=== PATIENT | female | born 1980 | race Two or more races ===

== ENCOUNTER → 2016-04-11 | Outpatient (CLI) | payer OTHER ==
--- NOTE | 2016-04-11 13:09 | REP ---
The cervical spine eight views: Vertebral body heights, interspacing alignment are normal. The facets are normally aligned. Prevertebral soft tissues are normal. There is no listhesis on flexion or extension. The odontoid view is unremarkable. There is no bony foraminal encroachment. Impression: Essentially negative plain film study of the cervical spine. Signed by Arjun Garduno MD 04/11/2016 01:00 P
--- NOTE | 2016-04-11 13:10 | REP ---
Lumbar spine five views: There are no comparisons. Vertebral body heights, interspacing alignment are normal. There is no spondylolysis or spondylolisthesis. The pedicles, facets and sacroiliac articulations are unremarkable. There is a calcification in the abdominal right upper quadrant, possibly a gallbladder calculus. Impression: Essentially negative lumbar spine. Right upper quadrant abdominal calcification, possibly a gallbladder calculus. Signed by Arjun Garduno MD 04/11/2016 01:02 P
--- NOTE | 2016-04-11 13:12 | REP ---
Left hip two views: Mineralization and joint space are normal. There is no femoral head deformity. There are no calcifications or foreign bodies. No fracture or dislocation. There is a calcification in the pelvis on the left, nonspecific, ureteral calculus versus phlebolith. Correlate with symptomatology. Impression: Negative left hip. Pelvic calcification. Signed by Arjun Garduno MD 04/11/2016 01:03 P
== END ==
LOC: M RAD 11:48
PROVIDERS: ATTEND Nurse Practitioner Family
DX: M25.552 Pain in left hip (principal); M54.12 Radiculopathy, cervical region; M54.42 Lumbago with sciatica, left side

== ENCOUNTER → 2016-04-11 | Outpatient (REF) | payer OTHER, MEDICAID ==
[2016-04-11 11:40] LABS: BASO % 0.5 % (0.0-1.0); EOS # 0.1 K/mm3 (0.0-0.50); EOS % 2.1 % (0.0-3.0); LARGE UNSTAINED CELL # 0.1 K/mm3 (0.0-0.4); LARGE UNSTAINED CELL % 2.1 % (0.0-4.0); LYMPH # 1.5 K/mm3 (1.5-4.5); LYMPH % 22.6 % (24.0-44.0); MEAN CORPUSCULAR HEMOGLOBIN 32.1 pg (27.0-33.0); MEAN CORPUSCULAR HGB CONC 33.6 g/dl (32.0-36.5); MEAN CORPUSCULAR VOLUME 95.6 fl (80.0-96.0); MONO # 0.5 K/mm3 (0.0-0.8); MONO % 7.9 % (0.0-5.0); NEUTROPHILS # 3.8 K/mm3 (1.8-7.7); NEUTROPHILS % 64.8 % (36.0-66.0); PLATELET COUNT, AUTOMATED 277 k/mm3 (150-450); WHITE BLOOD COUNT 5.9 K/mm3 (4.0-10.0)
[2016-04-11 12:26] LABS: ALBUMIN 4.1 GM/DL (3.2-5.2); ALBUMIN/GLOBULIN RATIO 1.32 (1.00-1.93); ALKALINE PHOSPHATASE 55 U/L (45-117); ALT/SGPT 16 U/L (12-78); ANION GAP 7 MEQ/L (8-16); AST/SGOT 12 U/L (15-37); BILIRUBIN,TOTAL 0.3 MG/DL (0.2-1.0); BLOOD UREA NITROGEN 12 MG/DL (7-18); CALCIUM LEVEL 8.9 MG/DL (8.5-10.1); CARBON DIOXIDE LEVEL 29 MEQ/L (21-32); CHLORIDE LEVEL 106 MEQ/L (98-107); CHOLESTEROL LEVEL 136 MG/DL (<200); CREATININE FOR GFR 0.83 MG/DL (0.55-1.02); GLOMERULAR FILTRATION RATE > 60.0 (>60); GLUCOSE, FASTING 81 MG/DL (70-105); POTASSIUM SERUM 4.3 MEQ/L (3.5-5.1); SODIUM LEVEL 142 MEQ/L (136-145); TOTAL PROTEIN 7.2 GM/DL (6.4-8.2); TRIGLYCERIDES LEVEL 44 MG/DL (<150)
== END ==
LOC: M SFHCPLAZ 09:55
PROVIDERS: ATTEND Nurse Practitioner Family
DX: Z00.00 Encounter for general adult medical examination without abnormal findings (principal); F32.9 Major depressive disorder, single episode, unspecified; Z13.220 Encounter for screening for lipoid disorders

== ENCOUNTER → 2016-12-15 | Outpatient (CLI) | payer OTHER, SELFPAY ==
--- NOTE | 2016-12-15 09:08 | REP ---
LEFT FOOT: Four views. HISTORY: Injury. FINDINGS: Four views of the left foot show overall normal mineralization. No fracture or subluxation is seen. IMPRESSION: Negative left foot radiographs. Signed by Gigi Wright MD 12/15/2016 01:16 P
--- NOTE | 2016-12-15 09:09 | REP ---
LEFT ANKLE SERIES: Four views. HISTORY: Injury. FINDINGS: Four views of the left ankle demonstrate an intact ankle mortise. No fracture or subluxation is seen. Minimal anterior swelling. IMPRESSION: No fracture noted. Signed by Gigi Wright MD 12/15/2016 01:16 P
--- NOTE | 2016-12-15 09:09 | REP ---
LEFT KNEE SERIES: Five views. HISTORY: Injury. FINDINGS: Five views of the left knee show normal bones, joints, and soft tissues. No fracture or subluxation is seen. A normal fabella is noted. IMPRESSION: Negative left knee radiographs. Signed by Gigi Wright MD 12/15/2016 01:16 P
== END ==
LOC: M LRY 08:13
PROVIDERS: ATTEND Nurse Practitioner Family
DX: S99.922A Unspecified injury of left foot, initial encounter (principal); S89.92XA Unspecified injury of left lower leg, initial encounter; S99.912A Unspecified injury of left ankle, initial encounter; X58.XXXA Exposure to other specified factors, initial encounter; Y92.89 Other specified places as the place of occurrence of the external cause; Y99.9 Unspecified external cause status; Y93.9 Activity, unspecified

== ENCOUNTER 2017-12-26 18:09 | Emergency (ER) | payer MEDICAID, SELFPAY, OTHER ==
[2017-12-26 18:37] LABS: BASO # 0.1 10^3/uL (0.0-0.2); BASO % 0.5 % (0.0-1.0); EOS # 0.2 10^3/uL (0.0-0.50); EOS % 1.9 % (0.0-3.0); HEMATOCRIT 40.9 % (36.0-47.0); HEMOGLOBIN 13.8 g/dl (12.0-15.5); IMMATURE GRANULOCYTE % 0.2 % (0-3.0); LYMPH # 2.1 10^3/uL (1.5-4.5); LYMPH % 22.2 % (24.0-44.0); MEAN CORPUSCULAR HEMOGLOBIN 31.9 pg (27.0-33.0); MEAN CORPUSCULAR HGB CONC 33.7 g/dl (32.0-36.5); MEAN CORPUSCULAR VOLUME 94.5 fl (80.0-96.0); MONO # 0.5 10^3/uL (0.0-0.8); MONO % 4.9 % (0.0-5.0); NEUTROPHILS # 6.6 10^3/uL (1.8-7.7); NEUTROPHILS % 70.3 % (36.0-66.0); PLATELET COUNT, AUTOMATED 248 10^3/uL (150-450); RED BLOOD COUNT 4.33 10^6/uL (4.00-5.40); RED CELL DISTRIBUTION WIDTH 12.4 % (11.5-14.5); WHITE BLOOD COUNT 9.4 10^3/uL (4.0-10.0)
[2017-12-26 18:58] LABS: CONTROL LINE HCG INT CTR LINE PRESENT; HCG, SERUM QUALITATIVE NEGATIVE (NEGATIVE)
[2017-12-26 19:05] LABS: ALBUMIN 3.9 GM/DL (3.2-5.2); ALBUMIN/GLOBULIN RATIO 1.22 (1.00-1.93); ALKALINE PHOSPHATASE 50 U/L (45-117); ALT/SGPT 22 U/L (12-78); ANION GAP 8 MEQ/L (8-16); AST/SGOT 15 U/L (7-37); BILIRUBIN,DIRECT < 0.1 MG/DL (0.0-0.2); BILIRUBIN,TOTAL 0.3 MG/DL (0.2-1.0); BLOOD UREA NITROGEN 9 MG/DL (7-18); CALCIUM LEVEL 8.4 MG/DL (8.5-10.1); CARBON DIOXIDE LEVEL 27 MEQ/L (21-32); CHLORIDE LEVEL 106 MEQ/L (98-107); CREATININE FOR GFR 0.85 MG/DL (0.55-1.30); GLOMERULAR FILTRATION RATE > 60.0 (>60); GLUCOSE, FASTING 104 MG/DL (70-100); LIPASE 98 U/L (73-393); POTASSIUM SERUM 4.1 MEQ/L (3.5-5.1); SODIUM LEVEL 141 MEQ/L (136-145); TOTAL PROTEIN 7.1 GM/DL (6.4-8.2)
[2017-12-26] MEDS: ONDANSETRON 4 MG ORAL DISINTEGRATING TAB (Q0162 PER 1MG) PO (20:15)
[2017-12-26 20:36] LABS: CK-MB VALUE MASS < 1.0 NG/ML (<3.6); CPK CREATINE PHOSPHOKINASE 75 U/L (26-192); MB/CK RELATIVE INDEX 1.33 (< OR =4); TROPONIN I < 0.02 NG/ML (< 0.10)
[2017-12-26] MEDS: GI COCKTAIL 50ML BTL(HYOSCYAMINE/MAALOX/LIDOCAINE VISCOUS)(1:3:1) PO (21:12)
== END 2017-12-26 21:58 | disposition home or self-care (01) ==
LOC: M ED 18:09
DX: K29.00 Acute gastritis without bleeding (principal); R00.1 Bradycardia, unspecified; K80.20 Calculus of gallbladder without cholecystitis without obstruction; Z72.0 Tobacco use
CPT/HCPCS: Q0162

== ENCOUNTER → 2020-06-05 | Outpatient (REF) | payer OTHER ==
[~2020-06-05] MED LIST: CARA1TAB6 PO; PROT1TAB2 PO; ZOFR4TAB14 PO
[2020-06-05 18:20] LABS: FREE T4 0.96 NG/DL (0.76-1.46); THYROID STIMULATING HORMONE 2.89 uIU/ML (0.358-3.740)
== END ==
LOC: M SFHCLERA 15:20
PROVIDERS: ATTEND Student in an Organized Health Care Education/Training Program
DX: F41.8 Other specified anxiety disorders (principal)

== ENCOUNTER → 2020-06-05 | Outpatient (CLI) | payer OTHER ==
--- NOTE | 2020-06-05 16:41 | REPMRS ---
Patient History The patient states she has not had a clinical breast exam in over a year. Family history of breast cancer at age 48 in mother, breast cancer at age 48 in paternal aunt, breast cancer at age 44 in maternal cousin, breast cancer under age 50 in paternal cousin. No Hormone Replacement Therapy Digital Woman Screen Mammo: June 05, 2020 - Exam #: [id number] Bilateral CC and MLO view(s) were taken. Technologist: Margie Cintron, RT No prior studies available for comparison. FINDINGS: The breast tissue is heterogeneously dense. This may lower the sensitivity of mammography. The Volpara volumetric breast density category is: C. There is a 2.6 cm well-circumscribed breast mass on the left in the 12 o'clock position which merits further evaluation. This may be a cyst. There is no other evidence of dominant mass, architectural distortion, or grouped microcalcification typical of malignancy. 3-D tomosynthesis shows no additional findings. Assessment: BI-RADS/ACR category 0 mammogram, Incomplete: Need additional imaging evaluation and/or prior mammograms for comparison. Recommendation Ultrasound of the left breast. Special view mammogram of the left breast in 1 year. This patient's [facility] Lifetime Breast Cancer RIsk is estimated at 23.5 %. Annual screening Breast MRI scanniing is recommended for patient's whose lifetime risk assessment is over 20%. This mammogram was interpreted with the aid of an FDA-approved computer-aided dectection system. Electronically Signed By: Feranndo Wright MD 06/05/20 [id number]
== END ==
LOC: M WHC 14:19
PROVIDERS: ATTEND Student in an Organized Health Care Education/Training Program
DX: R92.2 Inconclusive mammogram (principal)

== ENCOUNTER → 2020-06-19 | Outpatient (CLI) | payer OTHER ==
--- NOTE | 2020-06-19 09:22 | REP ---
INDICATION: ADDITIONAL VIEWS LT BREAST. COMPARISON: 06/05/2020. TECHNIQUE: Spot compression views left breast performed with focused left breast ultrasound. FINDINGS: A relatively well-defined oval nodule is confirmed in the left breast centrally approximately 3 cm behind the nipple, measuring approximately 2.6 cm maximally. Focused left breast ultrasound performed. At 12 o'clock approximately 1 cm from the nipple there is a solid-appearing mass with internal blood flow with Doppler evaluation. This measures 2.5 x 1.1 x 2.3 cm. There is an adjacent cyst as well measuring 6 x 2 x 6 mm. IMPRESSION: BIRADS/ACR category 4, suspicious. Solid nodule confirmed at 12 o'clock left breast near the nipple approximately 2.5 cm in diameter. Recommend ultrasound-guided biopsy, with postprocedure mammogram. This mammogram was interpreted with the aid of an FDA-approved computer-aided detection system. The patient letter being requested is M4. RECOMMENDATION: Recommend ultrasound-guided biopsy left breast nodule. Given the elevated lifetime risk of breast cancer, supplemental MRI of the breasts is recommended in 6 months. <Electronically signed by Arjun Jalloh > 06/19/20 0919
== END ==
LOC: M WHC 07:45
PROVIDERS: ATTEND Student in an Organized Health Care Education/Training Program
DX: N63.25 Unspecified lump in the left breast, overlapping quadrants (principal)

== ENCOUNTER → 2020-07-27 | Outpatient (CLI) | payer OTHER ==
[~2020-07-27] MED LIST changes: +CETI-24; +E-Z-GAS II EFFERVESCENT PACKET (SODIUM BICARB./CITRIC ACID/SIMETHICONE) As Ordered ONE; +E-Z-HD 98% w/w 340GM SUSP BTL As Ordered ONE; +E-Z-PAQUE 96% w/w SUSP 176GM BTL As Ordered ONE; +FLON1SPR NARES; +FLUTISP; +LEXA1TAB PO; +OMEP-218; +POLY510P14; +XANA0.5T PO
--- NOTE | 2020-07-27 15:00 | REP ---
INDICATION: DYSPHAGIA. COMPARISON: None TECHNIQUE: This procedure was performed by Kay Ibrahim [facility], under the direct supervision of Dr. Jalloh. Images were reviewed with Dr. Jalloh prior to dictation. Liquid barium and gas producing crystals were given in the erect position, as well as liquid barium in the prone oblique position in order to perform a double contrast esophagram examination. FINDINGS: A single view PA chest x-ray is submitted as a senior game advisor film. The superior mediastinal structures are midline. The heart size is within normal limits. The lungs are clear. The oral and pharyngeal stages of deglutition were unremarkable. Esophageal transport is prompt and efficient and there is no evidence of esophagitis, stricture, or mucosal ring. There is evidence of a small hiatal hernia. There was no gastroesophageal reflux noted . IMPRESSION: 1. Small hiatal hernia. 0.1 minutes of fluoroscopy time was utilized for this procedure. Some fluoroscopic images are performed with last image hold technology. These images require no additional radiation. <Electronically signed by Kay Ibrahim > 07/27/20 1401 <Electronically signed by Arjun Jalloh > 07/27/20 [id number]
== END ==
LOC: M RAD 08:02
PROVIDERS: ATTEND Internal Medicine Gastroenterology
DX: R13.10 Dysphagia, unspecified (principal)

== ENCOUNTER → 2020-08-02 | Outpatient (CLI) | payer OTHER ==
[~2020-08-02] MED LIST changes: -E-Z-GAS II EFFERVESCENT PACKET (SODIUM BICARB./CITRIC ACID/SIMETHICONE) As Ordered ONE; -E-Z-HD 98% w/w 340GM SUSP BTL As Ordered ONE; -E-Z-PAQUE 96% w/w SUSP 176GM BTL As Ordered ONE
== END ==
LOC: M LABSMTC 11:29
PROVIDERS: ATTEND Anesthesiology
DX: Z01.818 Encounter for other preprocedural examination (principal); Z11.52 Encounter for screening for COVID-19

== ENCOUNTER 2020-08-07 10:44 | Day surgery (SDC) | payer OTHER ==
[~2020-08-07] VITALS: Ht 175.3 cm; Wt 64.0 kg
[~2020-08-07 10:44] MED LIST changes: +NS 1,000 ML IV ONE
[2020-08-07] MEDS ORDERED: LIDOCAINE 2% 100MG/5ML SDV (FOR ANES.) As Ordered ONE (11:52)
[2020-08-07] MEDS ORDERED: propofoL 200 MG/20 ML VIAL As Ordered ONE ×2 (11:52→12:06)
[2020-08-07] MEDS ORDERED: fentaNYL 100 MCG/2 ML INJECTION (J3010) As Ordered ONE (11:52)
--- NOTE | 2020-08-07 12:20 | ROOR ---
Patient Name: Dorinda Swift Procedure Date: 08/07/2020 12:00 PM Date of : 1980 Age: 40 Room: [facility] Gender: Female Note Status: Finalized Procedure: Upper GI endoscopy Indications: Dysphagia Providers: Avila Cee MD Referring MD: [facility], Admin. Requesting Provider: Medicines: Monitored Anesthesia Care Complications: No immediate complications. Procedure: Pre-Anesthesia Assessment: - The heart rate, respiratory rate, oxygen saturations, blood pressure, adequacy of pulmonary ventilation, and response to care were monitored throughout the procedure. The Endoscope was introduced through the mouth, and advanced to the second part of duodenum. The upper GI endoscopy was accomplished without difficulty. The patient tolerated the procedure well. Findings: The examined esophagus was normal. This was biopsied with a cold forceps for evaluation of eosinophilic esophagitis. No endoscopic abnormality was evident in the esophagus to explain the patient's complaint of dysphagia. It was decided, however, to proceed with dilation of the entire esophagus. The scope was withdrawn. Dilation was performed with a Zavaleta dilator with no resistance at 54 Fr. The dilation site was examined following endoscope reinsertion and showed no change. The entire examined stomach was normal. Small Hiatal Hernia. Prominent, but not necessarily abnormal papilla. Biopsies were taken with a cold forceps for histology. The exam of the duodenum was otherwise normal. Impression: - Normal esophagus. Biopsied. - No endoscopic esophageal abnormality to explain patient's dysphagia. Esophagus dilated with 54F Zavaleta dilator. - Otherwise normal stomach. - Small Hiatal Hernia. - Prominent papilla. Biopsied. - Otherwise normal duodenum Recommendation: - Observe patient's clinical course. - Telephone endoscopist for pathology results in 2 weeks. Procedure Code(s): --- Professional --- 11519, Esophagogastroduodenoscopy, flexible, transoral; with biopsy, single or multiple 46746, Dilation of esophagus, by unguided sound or bougie, single or multiple passes Diagnosis Code(s): --- Professional --- R13.10, Dysphagia, unspecified CPT copyright 2019 [employer]. All rights reserved. The codes documented in this report are preliminary and upon technical training specialist review may be revised to meet current compliance requirements. Avila Cee MD Avila Cee MD 08/07/2020 12:20:03 PM Electronically signed by Avila Cee MD Number of Addenda: 0 Note Initiated On: 08/07/2020 12:00 PM Estimated Blood Loss: Estimated blood loss: none.
--- NOTE | 2020-08-07 12:36 | ROOR ---
Patient Name: Dorinda Swift Procedure Date: 08/07/2020 12:01 PM Date of : 1980 Age: 40 Room: [facility] Gender: Female Note Status: Finalized Procedure: Colonoscopy Indications: Rectal mass, Rectal pain Providers: Avila Cee MD Referring MD: [facility], Admin. Requesting Provider: Medicines: Monitored Anesthesia Care Complications: No immediate complications. Procedure: Pre-Anesthesia Assessment: - The heart rate, respiratory rate, oxygen saturations, blood pressure, adequacy of pulmonary ventilation, and response to care were monitored throughout the procedure. The Colonoscope was introduced through the anus and advanced to 10 cm into the ileum. The colonoscopy was performed without difficulty. The patient tolerated the procedure well. The quality of the bowel preparation was good. Findings: An anal fissure was found on perianal exam. A 1 cm thrombosed hemorrhoid were found on perianal exam. The colon (entire examined portion) appeared normal. The terminal ileum appeared normal. Impression: - Anal fissure was not found on perianal exam. - One 1 cm thrombosed external hemorrhoid. - The entire examined colon is otherwise normal. - The examined portion of the ileum was normal. - No specimens collected. Recommendation: - Continue present medications. - Depending on progress/recurrence of symptoms, consider follow up with a surgeon to remove hemorrhoid. - Return to referring physician as previously scheduled. Procedure Code(s): --- Professional --- 85875, Colonoscopy, flexible; diagnostic, including collection of specimen(s) by brushing or washing, when performed (separate procedure) Diagnosis Code(s): --- Professional --- K62.89, Other specified diseases of anus and rectum K64.9, Unspecified hemorrhoids K60.2, Anal fissure, unspecified CPT copyright 2019 [employer]. All rights reserved. The codes documented in this report are preliminary and upon remote coders review may be revised to meet current compliance requirements. Avila Cee MD Avila Cee MD 08/07/2020 12:35:57 PM Electronically signed by Avila Cee MD Number of Addenda: 0 Note Initiated On: 08/07/2020 12:01 PM Estimated Blood Loss: Estimated blood loss: none.
[2020-08-07 12:55] VITALS: BP 103/57
== END 2020-08-07 12:57 | disposition home or self-care (01) ==
LOC: M OPP 10:44
PROVIDERS: ATTEND Internal Medicine Gastroenterology
DX: K62.89 Other specified diseases of anus and rectum (principal); K60.2 Anal fissure, unspecified; K64.8 Other hemorrhoids; K44.9 Diaphragmatic hernia without obstruction or gangrene; R13.10 Dysphagia, unspecified; R63.4 Abnormal weight loss; K62.5 Hemorrhage of anus and rectum; Z80.0 Family history of malignant neoplasm of digestive organs; Z79.899 Other long term (current) drug therapy
CPT/HCPCS: 43239; 43450; 45378; 88305; J3010

== ENCOUNTER → 2020-08-21 | Outpatient (REF) | payer OTHER ==
[~2020-08-21] MED LIST changes: -NS 1,000 ML IV ONE
[2020-08-21 17:22] LABS: BASO # 0.1 10^3/uL (0.0-0.2); BASO % 0.5 % (0.0-1.0); EOS # 0.1 10^3/uL (0.0-0.5); HEMATOCRIT 38.8 % (36.0-47.0); HEMOGLOBIN 12.4 g/dl (12.0-15.5); LYMPH # 1.9 10^3/uL (1.5-5.0); LYMPH % 20.1 % (24.0-44.0); MEAN CORPUSCULAR HEMOGLOBIN 30.5 pg (27.0-33.0); MEAN CORPUSCULAR VOLUME 95.6 fl (80.0-96.0); MONO # 0.6 10^3/uL (0.0-0.8); NEUTROPHILS # 6.6 10^3/uL (1.5-8.5); PLATELET COUNT, AUTOMATED 293 10^3/uL (150-450); RED BLOOD COUNT 4.06 10^6/uL (4.00-5.40); WHITE BLOOD COUNT 9.2 10^3/uL (4.0-10.0)
[2020-08-21 17:48] LABS: ALBUMIN 4.1 GM/DL (3.2-5.2); ALT/SGPT 17 U/L (12-78); BILIRUBIN,TOTAL 0.3 MG/DL (0.2-1.0); BLOOD UREA NITROGEN 9 MG/DL (7-18); CALCIUM LEVEL 9.9 MG/DL (8.5-10.1); CARBON DIOXIDE LEVEL 27 MEQ/L (21-32); CHLORIDE LEVEL 107 MEQ/L (98-107); CREATININE FOR GFR 0.65 MG/DL (0.55-1.30); GLOMERULAR FILTRATION RATE > 60.0 (>58); GLUCOSE, FASTING 115 MG/DL (70-100); POTASSIUM SERUM 4.4 MEQ/L (3.5-5.1); SODIUM LEVEL 139 MEQ/L (136-145); TOTAL PROTEIN 7.1 GM/DL (6.4-8.2)
== END ==
LOC: M SFHCLERA 14:54
PROVIDERS: ATTEND Family Medicine
DX: R07.89 Other chest pain (principal); R93.89 Abnormal findings on diagnostic imaging of other specified body structures; R59.0 Localized enlarged lymph nodes

== ENCOUNTER → 2020-08-21 | Outpatient (CLI) | payer OTHER ==
[2020-08-21 15:24] LABS: APPEARANCE, URINE HAZY (CLEAR); BACTERIA, URINE AUTO NEGATIVE (NEGATIVE); BILIRUBIN, URINE AUTO NEGATIVE (NEGATIVE); BLOOD, URINE BLOOD NEGATIVE (NEGATIVE); COLOR, URINE YELLOW (YELLOW); GLUCOSE, URINE (UA) AUTO NEGATIVE (NEGATIVE); KETONE, URINE AUTO TRACE mg/dL (NEGATIVE); LEUKOCYTE ESTERASE, URINE AUTO NEGATIVE (NEGATIVE); MUCUS, URINE SMALL (NEGATIVE); NITRITE, URINE AUTO NEGATIVE (NEGATIVE); PROTEIN, URINE AUTO 1+ mg/dL (NEGATIVE); RBC, URINE AUTO 0 /HPF (0-3); SPECIFIC GRAVITY URINE AUTO 1.026 (1.002-1.035); SQUAMOUS EPITHELIAL CELL UR AU 3 /HPF (0-6); WBC, URINE AUTO 0 /HPF (0-3)
--- NOTE | 2020-08-22 06:53 | REP ---
INDICATION: CERVICAL LYMPHADENOPATHY/ LAB 2ND COMPARISON: None. TECHNIQUE: Jalloh scale and color evaluation of the neck. FINDINGS: Ultrasound examination along the right cervical chain demonstrates lymph nodes measuring 17 x 4 x 14 mm and 31 x 8 x 29 mm. Ultrasound examination along the left cervical chain demonstrates presumed lymph nodes measuring 14 x 5 x 8 mm, 8 x 6 x 9 mm, and 24 x 10 x 21 mm. Incidental 7 x 5 x 5 mm simple left thyroid lobe cyst noted. IMPRESSION: Bilateral cervical chain lymph nodes some of which are mildly enlarged. Physical correlation and follow-up recommended. <Electronically signed by Casey Banuelos > 08/22/20 0638
== END ==
LOC: M RAD 13:49
PROVIDERS: ATTEND Family Medicine
DX: R59.0 Localized enlarged lymph nodes (principal)

== ENCOUNTER → 2020-08-28 | Outpatient (CLI) | payer OTHER ==
[2020-08-28 13:37] LABS: BASO # 0.1 10^3/uL (0.0-0.2); BASO % 0.9 % (0.0-1.0); EOS # 0.2 10^3/uL (0.0-0.5); EOS % 2.3 % (0.0-3.0); HEMATOCRIT 41.7 % (36.0-47.0); HEMOGLOBIN 13.4 g/dl (12.0-15.5); LYMPH # 1.5 10^3/uL (1.5-5.0); LYMPH % 23.2 % (24.0-44.0); MEAN CORPUSCULAR HEMOGLOBIN 30.3 pg (27.0-33.0); MEAN CORPUSCULAR HGB CONC 32.1 g/dl (32.0-36.5); MEAN CORPUSCULAR VOLUME 94.3 fl (80.0-96.0); MONO # 0.5 10^3/uL (0.0-0.8); MONO % 7.3 % (2.0-8.0); NEUTROPHILS # 4.4 10^3/uL (1.5-8.5); NEUTROPHILS % 66.1 % (36.0-66.0); PLATELET COUNT, AUTOMATED 290 10^3/uL (150-450); RED BLOOD COUNT 4.42 10^6/uL (4.00-5.40); WHITE BLOOD COUNT 6.6 10^3/uL (4.0-10.0)
[2020-08-28 14:31] LABS: ALBUMIN 4.1 GM/DL (3.2-5.2); ALT/SGPT 18 U/L (12-78); BILIRUBIN,DIRECT 0.1 MG/DL (0.0-0.2); BILIRUBIN,TOTAL 0.4 MG/DL (0.2-1.0); CALCIUM LEVEL 9.2 MG/DL (8.5-10.1); CREATININE FOR GFR 0.68 MG/DL (0.55-1.30); GLOMERULAR FILTRATION RATE > 60.0 (>58); TOTAL PROTEIN 7.3 GM/DL (6.4-8.2)
== END ==
LOC: M PLALAB 11:04
PROVIDERS: ATTEND Internal Medicine Pulmonary Disease
DX: R91.8 Other nonspecific abnormal finding of lung field (principal)

== ENCOUNTER → 2021-02-19 | Outpatient (CLI) | payer OTHER ==
--- NOTE | 2021-02-19 14:51 | REP ---
INDICATION: ABN FINDING OF LUNG COMPARISON: 08/08/2020 TECHNIQUE: Axial noncontrast images from the thoracic inlet to the upper abdomen with coronal and sagittal reformations. This CT examination was performed using the following dose reduction techniques: Automated exposure control, adjustment of mA and/or kv according to the patient's size, and use of iterative reconstruction technique. FINDINGS: The bilateral lung goddard are relatively well aerated, symmetric and essentially clear. No acute consolidation, suspicious nodule or mass. Very minimal linear scarring in the right middle lobe is identified. Tracheobronchial tree is patent. Evaluation of the mediastinum demonstrates partially calcified mediastinal and hilar lymph nodes suggesting prior granulomatous disease without obvious significant adenopathy. Thoracic aorta, pulmonary vasculature, and heart/pericardium appear normal. Limited upper abdomen demonstrates normal bilateral adrenal glands. Surrounding musculoskeletal structures are intact. There is a 2.8 cm ovoid presumed cyst in the left breast which may warrant correlation. IMPRESSION: 1. No acute mediastinal or pleuroparenchymal process. 2. Evidence for prior granulomatous disease with partially calcified mediastinal and hilar lymph nodes. 3. 2.8 cm ovoid lesion in the left breast likely cyst may warrant further investigation and follow-up. <Electronically signed by Casey Banuelos > 02/19/21 [id number]
== END ==
LOC: M RAD 14:27
PROVIDERS: ATTEND Internal Medicine Pulmonary Disease
DX: R91.8 Other nonspecific abnormal finding of lung field (principal)

== ENCOUNTER 2021-04-26 08:49 | Emergency (ER) | payer OTHER ==
[~2021-04-26] VITALS: Ht 175.3 cm; Wt 72.7 kg
[~2021-04-26 08:49] MED LIST changes: +OMEP-173; -OMEP-218
[2021-04-26] MEDS ORDERED: BOOSTRIX/ADACEL VACCINE (DIPHTH/PERTUSS/ACELL/TETANUS) 0.5ML SYR IM ONE (09:00)
[2021-04-26 09:08] VITALS: BP 133/69
== END 2021-04-26 11:40 | disposition home or self-care (01) ==
LOC: EDBD 08:49 → M ED 08:49
DX: S21.219A Laceration without foreign body of unspecified back wall of thorax without penetration into thoracic cavity, initial encounter (principal); S30.92XA Unspecified superficial injury of abdominal wall, initial encounter; S30.0XXA Contusion of lower back and pelvis, initial encounter; Y04.8XXA Assault by other bodily force, initial encounter; F10.10 Alcohol abuse, uncomplicated; Y92.9 Unspecified place or not applicable; Y93.9 Activity, unspecified; Y99.9 Unspecified external cause status

== ENCOUNTER → 2021-05-08 | Outpatient (CLI) | payer OTHER | LOC: M WHC 10:53 | PROVIDERS: ATTEND Surgery | DX: D24.2 Benign neoplasm of left breast (principal); R59.9 Enlarged lymph nodes, unspecified | CPT/HCPCS: 76642; 76882; 77066; G0279 ==

== ENCOUNTER → 2021-05-23 | Outpatient (CLI) | payer OTHER ==
[~2021-05-23] MED LIST changes: -CETI-24; +CETI-24 PO; +LEXA1TAB2 PO; -OMEP-173; +OMEP-173 PO
== END ==
LOC: M LABSMTC 09:48
PROVIDERS: ATTEND Anesthesiology
DX: Z01.818 Encounter for other preprocedural examination (principal); Z11.52 Encounter for screening for COVID-19

== ENCOUNTER → 2021-05-23 | Outpatient (CLI) | payer OTHER ==
[2021-05-23 14:26] LABS: BASO # 0.1 10^3/uL (0.0-0.2); BASO % 0.8 % (0.0-1.0); EOS # 0.1 10^3/uL (0.0-0.5); EOS % 0.8 % (0.0-3.0); HEMATOCRIT 37.2 % (36.0-47.0); HEMOGLOBIN 12.5 g/dl (12.0-15.5); LYMPH % 24.9 % (24.0-44.0); MEAN CORPUSCULAR HEMOGLOBIN 31.5 pg (27.0-33.0); MEAN CORPUSCULAR HGB CONC 33.6 g/dl (32.0-36.5); MEAN CORPUSCULAR VOLUME 93.7 fl (80.0-96.0); MONO # 0.5 10^3/uL (0.0-0.8); MONO % 6.3 % (2.0-8.0); NEUTROPHILS # 5.3 10^3/uL (1.5-8.5); NEUTROPHILS % 66.9 % (36.0-66.0); PLATELET COUNT, AUTOMATED 328 10^3/uL (150-450); RED BLOOD COUNT 3.97 10^6/uL (4.00-5.40); WHITE BLOOD COUNT 7.8 10^3/uL (4.0-10.0)
[2021-05-23 14:57] LABS: BLOOD UREA NITROGEN 12 MG/DL (7-18); CALCIUM LEVEL 9.2 MG/DL (8.5-10.1); CARBON DIOXIDE LEVEL 30 MEQ/L (21-32); CHLORIDE LEVEL 105 MEQ/L (98-107); CREATININE FOR GFR 0.84 MG/DL (0.55-1.30); GLOMERULAR FILTRATION RATE > 60.0 (>58); GLUCOSE, FASTING 111 MG/DL (70-100); POTASSIUM SERUM 3.7 MEQ/L (3.5-5.1); SODIUM LEVEL 139 MEQ/L (136-145)
== END ==
LOC: M LAB 13:19
PROVIDERS: ATTEND Student in an Organized Health Care Education/Training Program
DX: Z01.818 Encounter for other preprocedural examination (principal)

== ENCOUNTER → 2021-05-27 | Outpatient (CLI) | payer OTHER | LOC: M CARPUL 07:34 | PROVIDERS: ATTEND Student in an Organized Health Care Education/Training Program | DX: R94.31 Abnormal electrocardiogram [ECG] [EKG] (principal) ==

== ENCOUNTER → 2021-06-13 | Outpatient (CLI) | payer OTHER | LOC: M LABSMTC 09:30 | PROVIDERS: ATTEND Anesthesiology | DX: Z01.812 Encounter for preprocedural laboratory examination (principal); Z20.822 Contact with and (suspected) exposure to COVID-19 ==

== ENCOUNTER 2021-06-18 07:39 | Day surgery (SDC) | payer OTHER ==
[~2021-06-18] VITALS: Ht 175.3 cm; Wt 71.7 kg
[~2021-06-18 07:39] MED LIST changes: +HEPARIN SOD (PORCINE) 5000UNITS/ML 1ML VIAL/SYRINGE SQ ONE; +LIDOCAINE 1% MDV 20ML VIAL SQ PRN; +LR 1,000 ML IV ONE; +ceFAZolin SOD 2 GM in IV 1 EA IV ONE
[2021-06-18] MEDS ORDERED: METO1TAB87 PO (08:02)
[2021-06-18] MEDS ORDERED: ROCURONIUM BROMIDE 50 MG/5 ML VIAL As Ordered ONE (09:18)
[2021-06-18] MEDS ORDERED: propofoL 200 MG/20 ML VIAL As Ordered ONE (09:18)
[2021-06-18] MEDS ORDERED: dexameTHASONE 4 MG/ML 1ML VIAL (J1100 PER 1MG) As Ordered ONE (09:19)
[2021-06-18] MEDS ORDERED: LIDOCAINE 2% 100MG/5ML SDV (FOR ANES.) As Ordered ONE (09:19)
[2021-06-18] MEDS ORDERED: fentaNYL 100 MCG/2 ML INJECTION As Ordered ONE (09:20)
[2021-06-18] MEDS ORDERED: MIDAZOLAM INJ 2MG/2ML VIAL (J2250 PER 1MG) As Ordered ONE (09:20)
[2021-06-18] MEDS ORDERED: LIDOCAINE 1% SDV 30ML VIAL As Ordered ONE (10:07)
[2021-06-18] MEDS ORDERED: BUPIVACAINE HCL 0.25% 30ML VIAL As Ordered ONE (10:07)
[2021-06-18] MEDS ORDERED: ACETAMINOPHEN 1000MG 100ML IV BTL (OFIRMEV) (J0131 PER 10MG) As Ordered ONE (10:42)
[2021-06-18] MEDS ORDERED: SUGAMMADEX SODIUM 500 MG/5 ML VIAL (BRIDION) As Ordered ONE (11:00)
[2021-06-18] MEDS ORDERED: ONDANSETRON 4MG/2ML VIAL As Ordered ONE (11:00)
[2021-06-18] MEDS ORDERED: GLYCOPYRROLATE INJ 0.2 MG/ML 2 ML VIAL As Ordered ONE (11:01)
[2021-06-18] MEDS ORDERED: HYDROmorphone HCL 2MG/ML 1ML VIAL As Ordered ONE (11:27)
[2021-06-18] MEDS ORDERED: ROXI1TAB2 PO (12:24)
[2021-06-18] MEDS ORDERED: LR 1,000 ML IV SCH (12:25)
[2021-06-18] MEDS ORDERED: ONDANSETRON 4MG/2ML VIAL IV PRN (12:25)
[2021-06-18] MEDS ORDERED: PROMETHAZINE 25MG/ML 1ML VIAL IV PRN (12:25)
[2021-06-18] MEDS ORDERED: MEPERIDINE INJ 25 MG/ML VIAL (J2175) IV PRN (12:25)
[2021-06-18] MEDS ORDERED: HYDROMORPHONE HCL 0.5 MG/ 0.5 ML SYRINGE (J1170 PER 1) IV PRN ×2 (12:25)
[2021-06-18] MEDS: oxyCODONE 5MG TAB PO PRN ×2 (12:46→13:43)
[2021-06-18 14:30] VITALS: BP 132/71
== END 2021-06-18 14:54 | disposition home or self-care (01) ==
LOC: M SDC 07:39
PROVIDERS: ATTEND Surgery
DX: D24.2 Benign neoplasm of left breast (principal); N64.4 Mastodynia; R59.9 Enlarged lymph nodes, unspecified; R51.9 Headache, unspecified; K21.9 Gastro-esophageal reflux disease without esophagitis; F41.9 Anxiety disorder, unspecified; F32.9 Major depressive disorder, single episode, unspecified; Z87.891 Personal history of nicotine dependence; Z79.899 Other long term (current) drug therapy
CPT/HCPCS: 19120; 36415; 81025; 86850; 86900; 86901; 88307; J0131; J0690; J1100; J1170; J1644; J2250; J2405; J3010

== ENCOUNTER → 2021-08-26 | Outpatient (CLI) | payer OTHER ==
[~2021-08-26] MED LIST changes: -HEPARIN SOD (PORCINE) 5000UNITS/ML 1ML VIAL/SYRINGE SQ ONE; -LIDOCAINE 1% MDV 20ML VIAL SQ PRN; -LR 1,000 ML IV ONE; +METO1TAB87 PO; +ROXI1TAB2 PO; -ceFAZolin SOD 2 GM in IV 1 EA IV ONE
== END ==
LOC: M RAD 09:50
PROVIDERS: ATTEND Internal Medicine Pulmonary Disease
DX: R91.8 Other nonspecific abnormal finding of lung field (principal)

== ENCOUNTER 2021-11-21 12:26 | Emergency (ER) | payer OTHER ==
[~2021-11-21] VITALS: Ht 175.3 cm; Wt 75.3 kg
[2021-11-21] MEDS ORDERED: ONDANSETRON 4MG 2ML VIAL IV ONE (16:30)
[2021-11-21] MEDS ORDERED: KETOROLAC 30 MG/ML 1ML VIAL IV ONE (16:30)
[2021-11-21] MEDS ORDERED: ACETAMINOPHEN TAB 650MG DOSE (2X325MG) PO ONE (16:30)
[2021-11-21 17:16] LABS: BASO # 0.1 10^3/uL (0.0-0.2); BASO % 0.6 % (0.0-1.0); EOS # 0.2 10^3/uL (0.0-0.5); EOS % 1.7 % (0.0-3.0); HEMATOCRIT 42.3 % (36.0-47.0); HEMOGLOBIN 14.2 g/dl (12.0-15.5); LYMPH # 2.6 10^3/uL (1.5-5.0); LYMPH % 29.4 % (24.0-44.0); MEAN CORPUSCULAR HGB CONC 33.6 g/dl (32.0-36.5); MEAN CORPUSCULAR VOLUME 92.4 fl (80.0-96.0); MONO # 0.5 10^3/uL (0.0-0.8); MONO % 6.1 % (2.0-8.0); NEUTROPHILS # 5.4 10^3/uL (1.5-8.5); PLATELET COUNT, AUTOMATED 403 10^3/uL (150-450); RED BLOOD COUNT 4.58 10^6/uL (4.00-5.40); WHITE BLOOD COUNT 8.7 10^3/uL (4.0-10.0)
[2021-11-21 17:47] LABS: BLOOD UREA NITROGEN 10 MG/DL (7-18); CALCIUM LEVEL 9.6 MG/DL (8.5-10.1); CARBON DIOXIDE LEVEL 25 MEQ/L (21-32); CHLORIDE LEVEL 107 MEQ/L (98-107); CREATININE FOR GFR 0.78 MG/DL (0.55-1.30); GLOMERULAR FILTRATION RATE > 60.0 (>58); GLUCOSE, FASTING 92 MG/DL (70-100); SODIUM LEVEL 139 MEQ/L (136-145)
[2021-11-21] MEDS ORDERED: ONDA4TAB6 PO (18:16)
[2021-11-21] MEDS ORDERED: IBUP-1022 PO (18:17)
[2021-11-21 18:37] VITALS: BP 132/95
== END 2021-11-21 18:41 | disposition home or self-care (01) ==
LOC: M ED 12:26
DX: U07.1 COVID-19 (principal); F41.9 Anxiety disorder, unspecified; F32.A Depression, unspecified; Z79.899 Other long term (current) drug therapy
CPT/HCPCS: 71045; 80048; 85025; 96374; 99284; J1885; J2405

== ENCOUNTER 2023-02-12 18:12 | Emergency (ER) | payer OTHER ==
[~2023-02-12] VITALS: Ht 175.3 cm; Wt 80.9 kg
[~2023-02-12 18:12] MED LIST changes: -CYCL-707 PO; -KETO10TAB PO
[2023-02-12] MEDS ORDERED: LIDOCAINE 5% (LIDODERM) PATCH TD ONE (19:45)
[2023-02-12] MEDS ORDERED: ACETAMINOPHEN TAB 650MG DOSE (2X325MG) PO ONE (19:45)
[2023-02-12] MEDS ORDERED: KETOROLAC 60MG 2ML VIAL IM ONE (19:45)
[2023-02-12] MEDS ORDERED: KETO10TAB PO (20:56)
[2023-02-12] MEDS ORDERED: CYCL-707 PO (20:56)
[2023-02-12 20:59] VITALS: BP 125/77; TEMP 98.1; O2SAT 99
== END 2023-02-12 21:01 | disposition home or self-care (01) ==
LOC: M ED 18:12
DX: M54.41 Lumbago with sciatica, right side (principal); Z79.83 Long term (current) use of bisphosphonates; Z79.899 Other long term (current) drug therapy
CPT/HCPCS: 72110; 96372; 99283; J1885

== ENCOUNTER → 2023-02-12 | Outpatient (REF) | payer OTHER ==
[~2023-02-12] MED LIST changes: +CYCL-707 PO; +IBUP-1022 PO; +KETO10TAB PO; +ONDA4TAB6 PO
[2023-02-13 12:54] LABS: APPEARANCE, URINE HAZY (CLEAR); BACTERIA, URINE AUTO NEGATIVE (NEGATIVE); BILIRUBIN, URINE AUTO NEGATIVE (NEGATIVE); BLOOD, URINE BLOOD NEGATIVE (NEGATIVE); COLOR, URINE YELLOW (YELLOW); GLUCOSE, URINE (UA) AUTO NEGATIVE (NEGATIVE); KETONE, URINE AUTO NEGATIVE (NEGATIVE); LEUKOCYTE ESTERASE, URINE AUTO NEGATIVE (NEGATIVE); MUCUS, URINE SMALL (NEGATIVE); NITRITE, URINE AUTO NEGATIVE (NEGATIVE); PROTEIN, URINE AUTO NEGATIVE (NEGATIVE); RBC, URINE AUTO 3 /HPF (0-3); SPECIFIC GRAVITY URINE AUTO 1.021 (1.002-1.035); SQUAMOUS EPITHELIAL CELL UR AU 4 /HPF (0-6); UROBILINOGEN, URINE AUTO 0.2 mg/dL (0.0-2.0); WBC, URINE AUTO 2 /HPF (0-3)
== END ==
LOC: M SFHCLERA 11:14
PROVIDERS: ATTEND Family Medicine
DX: R30.0 Dysuria (principal)

== ENCOUNTER 2023-08-22 09:36 | Emergency (ER) | payer OTHER ==
[~2023-08-22] VITALS: Ht 175.3 cm; Wt 82.0 kg
[~2023-08-22 09:36] MED LIST changes: +CYCL-707 PO; +KETO10TAB PO; +ONDA-282 PO; -ONDA4TAB6 PO
[2023-08-22] MEDS ORDERED: ALPR0.5T3 (09:42)
[2023-08-22] MEDS ORDERED: CYCL1SOL (09:42)
[2023-08-22] MEDS ORDERED: PREDOPD (09:42)
[2023-08-22] MEDS ORDERED: ESCITALOPRAM (09:42)
[2023-08-22 10:04] LABS: BASO # 0.1 10^3/uL (0.0-0.2); BASO % 0.4 % (0.0-1.0); EOS # 0.2 10^3/uL (0.0-0.5); EOS % 1.4 % (0.0-3.0); HEMATOCRIT 42.9 % (36.0-47.0); HEMOGLOBIN 14.3 g/dl (12.0-15.5); LYMPH % 11.6 % (24.0-44.0); MEAN CORPUSCULAR HEMOGLOBIN 30.4 pg (27.0-33.0); MEAN CORPUSCULAR HGB CONC 33.3 g/dl (32.0-36.5); MEAN CORPUSCULAR VOLUME 91.3 fl (80.0-96.0); MONO # 0.8 10^3/uL (0.0-0.8); MONO % 4.9 % (2.0-8.0); NEUTROPHILS # 13.8 10^3/uL (1.5-8.5); NEUTROPHILS % 81.4 % (36.0-66.0); PLATELET COUNT, AUTOMATED 355 10^3/uL (150-450)
[2023-08-22 10:16] LABS: INR 1.02; PARTIAL THROMBOPLASTIN TIME 24.8 SECONDS (24.8-34.2); PROTHROMBIN TIME 13.1 SECONDS (12.5-14.5)
[2023-08-22 10:27] LABS: LIPASE 26 U/L (12-53)
[2023-08-22 10:29] LABS: ALKALINE PHOSPHATASE 92 U/L (46-116); ALT/SGPT 15 U/L (7.0-40); AMYLASE 40 U/L (30-118); AST/SGOT 12 U/L (<34); BILIRUBIN,DIRECT 0.2 MG/DL (<0.4); BILIRUBIN,TOTAL 0.5 MG/DL (0.3-1.2); BLOOD UREA NITROGEN 13 MG/DL (9-23); CALCIUM LEVEL 9.5 MG/DL (8.5-10.1); CARBON DIOXIDE LEVEL 28 MMOL/L (20-31); CHLORIDE LEVEL 109 MMOL/L (98-107); CREATININE FOR GFR 0.83 MG/DL (0.55-1.30); GLOMERULAR FILTRATION RATE > 60.0 (>58); GLUCOSE, FASTING 98 MG/DL (60-100); POTASSIUM SERUM 4.3 MMOL/L (3.5-5.1); SODIUM LEVEL 142 MMOL/L (136-145); TOTAL PROTEIN 7.2 G/DL (5.7-8.2)
[2023-08-22 10:52] LABS: CK-MB VALUE MASS < 1.0 NG/ML (<3.6)
[2023-08-22 10:57] LABS: CPK CREATINE PHOSPHOKINASE 119 U/L (34-145); MB/CK RELATIVE INDEX 0.84 (< OR =4)
[2023-08-22] MEDS ORDERED: ISOVUE-370 76% 100ML VIAL As Ordered ONE (11:16)
[2023-08-22] MEDS: NS 1,000 ML IV ONE (11:32)
[2023-08-22] MEDS: PIPERACILLIN/TAZOBACTAM SOD 3.375 GM in D5W MINI-BAG PLUS 50 ML IV ONE (11:32)
[2023-08-22] MEDS: ONDANSETRON 4MG 2ML VIAL IV ONE (11:32)
[2023-08-22 13:00] VITALS: O2SAT 95
[2023-08-22] MEDS ORDERED: SUCR1SS PO (13:02)
[2023-08-22 13:12] VITALS: BP 127/86; TEMP 98.1
== END 2023-08-22 13:16 | disposition home or self-care (01) ==
LOC: M ED 09:36
DX: K29.70 Gastritis, unspecified, without bleeding (principal); I49.3 Ventricular premature depolarization; K21.9 Gastro-esophageal reflux disease without esophagitis; K44.9 Diaphragmatic hernia without obstruction or gangrene; F17.200 Nicotine dependence, unspecified, uncomplicated; F10.10 Alcohol abuse, uncomplicated; Z79.52 Long term (current) use of systemic steroids; Z79.899 Other long term (current) drug therapy
CPT/HCPCS: 74177; 76705; 80047; 80048; 80076; 81001; 82150; 82550; 82553; 83605; 83690; 84484; 85025; 85610; 85730; 93005; 93041; 96365; 96366; 96375; 99285; J2405; J2543; Q9967

== ENCOUNTER 2024-12-11 18:38 | Emergency (ER) | payer OTHER ==
[~2024-12-11] VITALS: Ht 175.3 cm; Wt 81.7 kg
[~2024-12-11 18:38] MED LIST changes: +ALPR0.5T3; +CYCL1SOL; +ESCITALOPRAM; -IBUP-1022 PO; +IBUP600T42 PO; +PREDOPD; +SUCR1SS PO
[2024-12-11] MEDS ORDERED: OMEP-173 (18:47)
[2024-12-11] MEDS ORDERED: NEOM1SUS13 (18:47)
[2024-12-11] MEDS ORDERED: LEXA1TAB2 (18:47)
[2024-12-11] MEDS ORDERED: AMOX500C (18:47)
[2024-12-11] MEDS: KETOROLAC 30 MG/ML 1 ML VIAL IV ONE (22:51)
[2024-12-11 22:54] LABS: BASO # 0.1 10^3/uL (0.0-0.2); BASO % 0.6 % (0.0-1.0); EOS # 0.3 10^3/uL (0.0-0.5); EOS % 3.1 % (0.0-3.0); LYMPH # 2.4 10^3/uL (1.5-5.0); LYMPH % 25.2 % (24.0-44.0); MONO # 0.6 10^3/uL (0.0-0.8); MONO % 6.5 % (2.0-8.0); NEUTROPHILS # 6.2 10^3/uL (1.5-8.5); NEUTROPHILS % 64.3 % (36.0-66.0); PLATELET COUNT, AUTOMATED 428 10^3/uL (150-450)
[2024-12-11 22:58] LABS: ERYTHROCYTE SEDIMENTATION RATE 45 mm/hr (0-20)
[2024-12-11] MEDS ORDERED: ISOVUE-370 76% 100 ML VIAL As Ordered ONE (23:07)
[2024-12-12 00:35] VITALS: BP 134/73; TEMP 98.4; O2SAT 99
[2024-12-12] MEDS: CIPRODEX OTIC SUSP 7.5 ML AD ONE (01:09)
[2024-12-12] MEDS ORDERED: CIPR7.5D2 OT (01:22)
[2024-12-12] MEDS ORDERED: LEVO1TAB40 PO (01:22)
== END 2024-12-12 01:40 | disposition home or self-care (01) ==
LOC: M ED 18:38
DX: H60.91 Unspecified otitis externa, right ear (principal); Z79.2 Long term (current) use of antibiotics; Z79.899 Other long term (current) drug therapy
CPT/HCPCS: 70487; 80047; 85025; 85652; 86140; 87040; 96374; 99284; J1885; Q9967